=== PATIENT | male | born 1945 | race Caucasian/White ===

== ENCOUNTER 2017-05-30 19:32 | Inpatient (IN) | payer OTHER ==
[~2017-05-30] VITALS: Ht 182.9 cm; Wt 64.0 kg
[2017-05-30] MEDS ORDERED: FOLIC ACID1 MG (20:10)
[2017-05-30] MEDS ORDERED: COZAAR100 MG (20:11)
[2017-07-03] MEDS ORDERED: ISORDIL10 MG PO (17:09)
[2017-07-03] MEDS ORDERED: COZAAR100 MG PO (17:09)
[2017-07-03] MEDS ORDERED: Coreg 25MG TABLET PO (17:09)
[2017-07-03] MEDS ORDERED: TAMSULOSIN HCL0.4 MG PO (17:09)
[2017-07-03] MEDS ORDERED: ULTRACET PO (17:09)
== END 2017-07-03 17:22 | disposition home or self-care (01) | DRG 329 ==
LOC: ER 19:32 → SURH 05-31 07:42 → ICU 05-31 07:42 → SURG 05-31 07:42 → MEDI 06-05 20:49 → SURH 06-05 20:49 → ICU 06-29 14:20 → SURH 07-01 13:42 → MEDI 07-01 13:42 → SURH 07-01 13:42
PROVIDERS: Surgery
PROC: BW21Y0Z Computerized Tomography (CT Scan) of Abdomen and Pelvis using Other Contrast, Unenhanced and Enhanced (ICD-10-PCS; 2017-05-31)
PROC: BB24Y0Z Computerized Tomography (CT Scan) of Bilateral Lungs using Other Contrast, Unenhanced and Enhanced (ICD-10-PCS; 2017-05-31)
PROC: 30233N1 Transfusion of Nonautologous Red Blood Cells into Peripheral Vein, Percutaneous Approach (ICD-10-PCS; 2017-06-02)
PROC: 3E0436Z Introduction of Nutritional Substance into Central Vein, Percutaneous Approach (ICD-10-PCS; 2017-06-02)
PROC: 02HV33Z Insertion of Infusion Device into Superior Vena Cava, Percutaneous Approach (ICD-10-PCS; 2017-06-02)
PROC: 0W9J30Z Drainage of Pelvic Cavity with Drainage Device, Percutaneous Approach (ICD-10-PCS; 2017-06-03)
PROC: 4A033R1 Measurement of Arterial Saturation, Peripheral, Percutaneous Approach (ICD-10-PCS; 2017-06-04)
PROC: 3E0F7GC Introduction of Other Therapeutic Substance into Respiratory Tract, Via Natural or Artificial Opening (ICD-10-PCS; 2017-06-05)
PROC: B246ZZZ Ultrasonography of Right and Left Heart (ICD-10-PCS; 2017-06-05)
PROC: 4A12X4Z Monitoring of Cardiac Electrical Activity, External Approach (ICD-10-PCS; 2017-06-05)
PROC: BW21Y0Z Computerized Tomography (CT Scan) of Abdomen and Pelvis using Other Contrast, Unenhanced and Enhanced (ICD-10-PCS; 2017-06-11)
PROC: 5A09557 Assistance with Respiratory Ventilation, Greater than 96 Consecutive Hours, Continuous Positive Airway Pressure (ICD-10-PCS; 2017-06-12)
PROC: BW24ZZZ Computerized Tomography (CT Scan) of Chest and Abdomen (ICD-10-PCS; 2017-06-19)
PROC: 0D1L0Z4 Bypass Transverse Colon to Cutaneous, Open Approach (ICD-10-PCS; 2017-06-29)
PROC: 07TC0ZZ Resection of Pelvis Lymphatic, Open Approach (ICD-10-PCS; 2017-06-29)
PROC: 0DBU0ZZ Excision of Omentum, Open Approach (ICD-10-PCS; 2017-06-29)
PROC: 0DTG0ZZ Resection of Left Large Intestine, Open Approach (ICD-10-PCS; principal; 2017-06-29 07:00)
PROC: 4A12X4Z Monitoring of Cardiac Electrical Activity, External Approach (ICD-10-PCS; 2017-07-01)
DX: C18.6 Malignant neoplasm of descending colon (principal); K65.1 Peritoneal abscess; K63.1 Perforation of intestine (nontraumatic); A41.9 Sepsis, unspecified organism; J09.X1 Influenza due to identified novel influenza A virus with pneumonia; J18.8 Other pneumonia, unspecified organism; I50.23 Acute on chronic systolic (congestive) heart failure; B37.0 Candidal stomatitis; B15.9 Hepatitis A without hepatic coma; J90 Pleural effusion, not elsewhere classified; F10.20 Alcohol dependence, uncomplicated; F17.210 Nicotine dependence, cigarettes, uncomplicated; D64.89 Other specified anemias; R09.02 Hypoxemia; E88.09 Other disorders of plasma-protein metabolism, not elsewhere classified; B96.20 Unspecified Escherichia coli [E. coli] as the cause of diseases classified elsewhere; I11.0 Hypertensive heart disease with heart failure; B96.6 Bacteroides fragilis [B. fragilis] as the cause of diseases classified elsewhere; Z66 Do not resuscitate